=== PATIENT | male | born 1955 | race Caucasian/White ===

== ENCOUNTER 2018-02-11 09:46 | Emergency (ER) | payer OTHER ==
[~2018-02-11 09:46] MED LIST: AMBIEN (MONOGRAP5 MG PO; AMLODIPINE-BEN1 EAC2 PO; ASPIRIN EC81 M1 PO; CENTRUM SILVER1 TA2 PO; CRESTOR10 M1 PO; DISULFIRAM250 MG; ESCITALOPRAM20 MG PO; MAGNESIUM200 MG PO; NALTREXONE50 MG PO; VITAMIN B COMPL1 CAP PO
--- NOTE | 2018-02-11 10:56 | ED HAND/WRIST INJURY COMPLAINT ---
History of Present Illness General Chief Complaint: Laceration Procedure Stated Complaint: LAC TO RIGHT HAND THUMB Source: patient Exam Limitations: no limitations Vital Signs & Intake/Output Vital Signs & Intake/Output Vital Signs Date Time Temp Pulse Resp B/P B/P Pulse O2 O2 Flow FiO2 Mean Ox Delivery Rate 02/11 1301 98.0 84 18 144/76 97 Room Air Room Air 02/11 1004 98.0 83 20 150/78 98 Allergies Coded Allergies: Penicillins (UNKNOWN 02/11/18) Sulfa (Sulfonamide Antibiotics) (UNKNOWN 02/11/18) Reconcile Medications Amlodipine Besylate/Benazepril (Amlodipine-Benazepril 5-20 MG) 5 MG-20 MG CAPSULE 1 CAP PO DAILY BP (Reported) Aspirin (Ecotrin*) 81 MG TABLET.DR 1 TAB PO DAILY HEART HEALTH (Reported) Clindamycin HCl 300 MG CAPSULE 1 CAP PO TID ppx Rosuvastatin Calcium (Crestor) 10 MG TABLET 1 TAB PO DAILY CHOLESTEROL ( Reported) Tylenol With Codeine (Tylenol With Codeine #3 Tablet) 300 MG-30 MG TABLET 1 TAB PO BIDP PRN pain Triage Note: PER PT LAC TO RT THUMB USING TABLE SAW THIS AM AT HOME 0930 UTD WITH TETANUS SUBSTANIAL LAC TO RT THUMB BLEEDING MILDLY Triage Nurses Notes Reviewed? yes Occurred: just prior to arrival Duration: hour(s): (1), constant Timing: recent history Injury Environment: home Severity: mild Severity Numbers: 4 Pain/Injury Location: Right: 1st finger. Context: laceration Method of Injury: laceration No Modifying Factors: none Associated Symptoms: none HPI: 62-year-old male with history of hypertension and high cholesterol presents to the ER for evaluation status post sustaining laceration to his right first finger just prior to arrival when he cut it on a table saw while talking to cut a piece of wood for his kitchen island. He is up-to-date on his tetanus is complaining of mild aching pain over the finger. He denies any other injury no numbness no tingling he has not taken anything for his symptoms and is declining anything when offered. Past History Travel History Traveled to [place] past 21 day No Medical History Any Pertinent Medical History? see below for history Neurological: NONE EENT: NONE Cardiovascular: hypertension, CHOL Respiratory: NONE Gastrointestinal: NONE Hepatic: NONE Renal: NONE Musculoskeletal: fracture Psychiatric: NONE Endocrine: NONE Blood Disorders: NONE Cancer(s): NONE Surgical History Surgical History: non-contributory Psychosocial History Who do you live with Spouse What is your primary language Bulgarian Tobacco Use: Current Daily Use Daily Tobacco Use Amount/Type: => 5 Cigarettes daily Family History Hx Contributory? No Review of Systems Review of Systems Constitutional: Reports: see HPI. Comments Review of systems: See HPI, All other systems negative. Constitutional, no chills no fever, HEENT: no sore throat no congestion Cardiovascular: No chest pain , no palpitation Skin: no rashes, no change in skin Respiratory: No dyspnea GI: No nausea no vomiting Muscle skeletal: see hpi Neurologic: , no headache Heme/endocrine: No bruising Physical Exam Physical Exam General Appearance: well developed/nourished, no apparent distress, alert, awake Hand Left: normal inspection, normal range of motion Hand Right: 1st finger Comments: Well-developed well-nourished patient in no apparent distress. HEENT: Atraumatic, extraocular motion intact Neck: Supple, FROM Back: FROM Respiratory: No respiratory distress. Patient speaking in full complete sentences Shoulder: Atraumatic/Stable. FROM . Elbow: Atraumatic/stable. FROM. No laxity Upper arm/Forearm: Atraumatic. Nontender. 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 Brisk cap refill lower Extremities: full range of motion Neuro: awake, alert, and oriented to person, place and time. There were no obvious focal neurologic abnormalities. Skin: Warm & dry;No appreciable rash on exposed skin Psych: Mood affect normal, normal memory normal judgment. Progress Differential Diagnosis: contusion, compartment syndrome, dislocation, fracture, sprain, tendon inj Plan of Care: X-ray ordered, a digital block was performed of the right first finger by myself for pain control. Case discussed with and x-ray reviewed with Dr. howard call placed to plastics I spoke with Dr. Santacruz regarding the x-ray results. He advised to thoroughly irrigate the finger, given x-ray he advised that the patient should see him either tomorrow or on Sunday, antibiotics and thorough irrigation however patient does not require a walker washout per him at this time. I discussed with the patient plan of care and need for close follow-up with plastic surgery as CT or cornea Dr. Santacruz may require pinning and tendon repair the patient does have slight range of motion of the finger flexion and extension passively and actively. The patient states at this time that he is not interested in having any surgeries performed however discussed with him the x-ray showed Laureano the x-ray and importance of close follow-up anyway in terms of wound care signs of infection precaution to look out for and importance of close follow-up and she understands and states she will call him later today for follow-up 16 sutures were placed by myself 3-0 patient tolerate procedure well vigorous one applied, Xeroform dressing was applied, prescription for antibiotics and pain medication percent his pharmacy return precautions were discussed at length. Finger is neurovascularly intact prior to and after application of splint and sutures. Lous feels comfortable with plan cleared for discharge Diagnostic Imaging: Viewed by Me: Radiology Read. Discussed w/RAD: Radiology Read. Radiology Impression: PATIENT: POLINA TURCIOS PRESENT AGE: 62 PATIENT ACCOUNT NO: [id number] : 54 LOCATION: [facility] ORDERING PHYSICIAN: Ander JANE SERVICE DATE: 02/11/18 EXAM TYPE: RAD - XRY-FINGERS, RIGHT EXAMINATION: XR FINGER, RIGHT CLINICAL INFORMATION: Laceration right first finger. COMPARISON: None TECHNIQUE: Three views of the right first digit. FINDINGS: There is a vertical laceration/fracture proximal volar and distal phalanx first digit with moderate volar soft tissue swelling and gas from soft tissue laceration. No other fracture seen. IMPRESSION: Distal phalanx proximal ulnar laceration fracture first digit. The fracture line extends to the PIP joint. Also visualized is soft tissue laceration with gas and edema. DICTATED BY: David Montaño MD DATE/TIME DICTATED:02/11/181211 INTERNAL AUDIT MANAGER:VALENTINA DATE/TIME TRANSCRIBED:02/11/181211 CONFIDENTIAL, DO NOT COPY WITHOUT APPROPRIATE AUTHORIZATION. <Electronically signed in Other Vendor System> SIGNED BY: David Montaño MD 02/11/18 1217 Departure Departure Time of Disposition: 1333 Disposition: HOME OR SELF CARE Condition: Stable Clinical Impression Primary Impression: Finger laceration Secondary Impressions: Finger fracture Referrals: Noam OLEA,Zane Cabrera MD,Chivo (PCP/Family) Additional Instructions: TYLENOL with codeine for breakthrough pain- this is a narcotic and can make you drowsy. no driving or drinking alcohol while taking. Follow-up with plastic surgeon Dr. Santacruz has discussed today call his office and inform them that the provider in the ER spoke with Dr. Santacruz and he wants to see you either tomorrow or Sunday. Clindamycin as directed. Keep finger splint on at all times. Tylenol Motrin for pain. Return to ER anytime sooner if you develop worsening pain numbness tingling redness warmth swelling discharge fever chills. Please understand that foreign bodies such as glass or wood may not be visible to the naked eye or on plain x-rays. If the wound becomes red, swollen, increasingly more painful or if there is any drainage from the wound, please have it reevaluated by a physician for the possibility of a retained foreign body. Departure Forms: Customer Survey General Discharge Information Prescriptions: Current Visit Scripts Clindamycin HCl 1 CAP PO TID #30 CAP Tylenol With Codeine (Tylenol With Codeine #3 Tablet) 1 TAB PO BIDP PRN pain #10 TAB Procedures Laceration/Wound Repair Laceration/Wound Repair: Wound Location: r 1st finger Wound's Depth, Shape: linear, superficial Wound Length (cm): 4 Wound Explored: clean, irrigated extensively Irrigated w/ Saline (ccs): 1000 Betadine Prep? Yes Anesthesia: digit block, 1% lidocaine Volume Anesthetic (ccs): 6 Wound Repaired With: sutures, Steri-strips Suture Size/Type: 3:0 Number of Sutures: 16 Layer Closure? No Sterile Dressing Applied: Yes Splint Applied? Yes By Who? by me Type of Splint Applied: finger splint Tetanus Status: up to date
--- NOTE | 2018-02-11 12:17 | RADIOLOGY REPORT ---
EXAMINATION: XR FINGER, RIGHT CLINICAL INFORMATION: Laceration right first finger. COMPARISON: None TECHNIQUE: Three views of the right first digit. FINDINGS: There is a vertical laceration/fracture proximal volar and distal phalanx first digit with moderate volar soft tissue swelling and gas from soft tissue laceration. No other fracture seen. IMPRESSION: Distal phalanx proximal ulnar laceration fracture first digit. The fracture line extends to the PIP joint. Also visualized is soft tissue laceration with gas and edema.
[2018-02-11 13:01] VITALS: BP 144/76
[2018-02-11] MEDS ORDERED: CLINDAMYCIN HC300 M1 PO (13:34)
[2018-02-11] MEDS ORDERED: TYLENOL WITH C1 EACH PO (13:34)
== END 2018-02-11 13:42 ==
LOC: ERH 09:46
DX: S62.511A Displaced fracture of proximal phalanx of right thumb, initial encounter for closed fracture (principal); S61.011A Laceration without foreign body of right thumb without damage to nail, initial encounter; W31.2XXA Contact with powered woodworking and forming machines, initial encounter; Y93.89 Activity, other specified; Y92.009 Unspecified place in unspecified non-institutional (private) residence as the place of occurrence of the external cause
CPT/HCPCS: 73140-RT; J2001